=== PATIENT | female | born 1970 | race Caucasian/White ===

== ENCOUNTER 2016-08-11 19:00 | Emergency (ER) | payer OTHER ==
[~2016-08-11] VITALS: Ht 167.6 cm; Wt 55.3 kg
[~2016-08-11 19:00] MED LIST: AMOXICILLIN500 M1 PO; CELEXA20 MG PO; COLACE100 MG PO; DIAZEPAM5 MG; FLEXERIL10 MG PO; LIBRIUM25 MG PO; MOBIC15 MG PO; MOTRIN600 MG PO; NOHOMEMEDS; PEN-VEE K,VEET500 MG PO; PERCOCET 5/31 TABLET PO; PERIDEX1 ML MM; ULTRAM50 MG PO; ZOFRAN ODT4 MG PO; ZOFRAN4 MG PO
[2016-08-11 19:50] LABS: HEMATOCRIT 42.7 % (36.0-46.0); MCH 34.5 PG (29.0-34.0); MCHC 35.6 G/DL (30.0-36.0); MCV 96.8 FL (83-99); MEAN PLAT.VOLUME 10.3 uM^3 (9.5-12.4); PLATELET COUNT 309 K/uL (156-360); RBC DIS.WIDTH-SD 44.7 % (39-53); RED BLOOD COUNT 4.41 M/uL (3.80-5.20); WHITE BLOOD COUNT 9.7 K/uL (4.1-10.2)
[2016-08-11 19:59] LABS: CHLORIDE 107 mEq/L (99-109); POTASSIUM 3.5 mEq/L (3.7-5.4); SODIUM 146 mEq/L (136-147)
[2016-08-11 20:01] LABS: GLUCOSE 79 mg/dL (70-99)
[2016-08-11 20:02] LABS: ANION GAP 17 MEQ/L (2-14)
[2016-08-11 20:04] LABS: SERUM ETHYL ALCOHOL 360 mg/dL
[2016-08-11 20:05] LABS: GFR ESTIMATE (CALCULATED) > 59 mL/min/; UREA NITROGEN (BUN) 6 mg/dL (9-23)
[2016-08-12] MEDS ORDERED: LIBRIUM25 MG PO (06:10)
[2016-08-12 06:30] VITALS: BP 136/97
== END 2016-08-12 06:37 | disposition home or self-care (01) ==
LOC: EME 19:00
PROVIDERS: Emergency Medicine
DX: F33.8 Other recurrent depressive disorders (principal); F10.129 Alcohol abuse with intoxication, unspecified; Y90.8 Blood alcohol level of 240 mg/100 ml or more; R45.851 Suicidal ideations; F17.200 Nicotine dependence, unspecified, uncomplicated
CPT/HCPCS: 80048; 85027; 90837; 99281; 99285; G0480

== ENCOUNTER 2016-10-17 20:04 | Emergency (ER) | payer OTHER ==
[~2016-10-17] VITALS: Ht 165.1 cm; Wt 46.2 kg
[2016-10-17] MEDS ORDERED: LIBRIUM25 MG PO (20:28)
[2016-10-17] MEDS ORDERED: ZOFRAN4 MG PO (20:28)
[2016-10-17 20:54] VITALS: BP 131/93
== END 2016-10-17 20:56 | disposition home or self-care (01) ==
LOC: EME 20:04
DX: F10.10 Alcohol abuse, uncomplicated (principal); F17.200 Nicotine dependence, unspecified, uncomplicated
CPT/HCPCS: 99281; 99283

== ENCOUNTER 2016-10-22 00:12 | Emergency (ER) | payer OTHER ==
[~2016-10-22] VITALS: Ht 165.1 cm; Wt 48.6 kg
[2016-10-22 03:30] VITALS: BP 138/89
== END 2016-10-22 03:50 ==
LOC: EME 00:12
DX: F10.129 Alcohol abuse with intoxication, unspecified (principal); S20.212A Contusion of left front wall of thorax, initial encounter; S20.211A Contusion of right front wall of thorax, initial encounter; S00.12XA Contusion of left eyelid and periocular area, initial encounter; S00.531A Contusion of lip, initial encounter; Y04.0XXA Assault by unarmed brawl or fight, initial encounter; Y07.03 Male partner, perpetrator of maltreatment and neglect
CPT/HCPCS: 70450; 70486; 71111; 99281; 99283

== ENCOUNTER 2016-10-26 01:07 | Emergency (ER) | payer OTHER ==
[~2016-10-26] VITALS: Ht 165.1 cm; Wt 46.9 kg
[2016-10-26 01:52] LABS: ADD MIUA? YES; BILIRUBIN NEGATIVE; BLOOD NEGATIVE; COLOR YELLOW ((YELLOW)); GLUCOSE (STRIP) NEGATIVE; KETONES NEGATIVE; LEUKOCYTES LARGE; NITRITE NEGATIVE; PROTEIN (STRIP) NEGATIVE; SPECIFIC GRAVITY 1.005 (1.000-1.030); UROBILINOGEN 0.2 MG/DL (0.2-1.0)
[2016-10-26 02:01] LABS: ADD MEDTOX COMMENT Y; AMPHETAMINE NEGATIVE (500 ng/mL); BARBITURATES NEGATIVE (200 ng/mL); BENZODIAZEPINES PRESUMPTIVE POSITIVE (150 ng/mL); COCAINE NEGATIVE (150 ng/mL); INTERNAL CONTROLS VALID? YES; METHADONE NEGATIVE (200 ng/mL); METHAMPHETAMINE NEGATIVE (500 ng/mL); OPIATES (MORPHINE) NEGATIVE (100 ng/mL); OXYCODONE NEGATIVE (100 ng/mL); PHENCYCLIDINE NEGATIVE (25 ng/mL); PROPOXYPHENE NEGATIVE (300 ng/mL); THC CANNABINOIDS PRESUMPTIVE POSITIVE (50 ng/mL); TRICYCLIC ANTIDEPRESSANTS NEGATIVE (300 ng/mL)
[2016-10-26 02:05] LABS: BACTERIA RARE /HPF; EPITHELIAL CELLS RARE /HPF; MUCUS NONE SEEN /LPF; RED BLOOD CELLS 0-5 /HPF (0-5); UCUL ADDED? NO
[2016-10-26 02:13] LABS: HEMATOCRIT 44.1 % (36.0-46.0); MCH 33.4 PG (29.0-34.0); MCHC 34.9 G/DL (30.0-36.0); MCV 95.7 FL (83-99); MEAN PLAT.VOLUME 10.5 uM^3 (9.5-12.4); PLATELET COUNT 245 K/uL (156-360); RBC DIS.WIDTH-CV 13.2 % (11.8-14.6); RBC DIS.WIDTH-SD 46.6 % (39-53); RED BLOOD COUNT 4.61 M/uL (3.80-5.20); WHITE BLOOD COUNT 7.2 K/uL (4.1-10.2)
[2016-10-26 02:23] LABS: CHLORIDE 108 mEq/L (99-109); POTASSIUM 3.6 mEq/L (3.7-5.4); SODIUM 145 mEq/L (136-147)
[2016-10-26 02:25] LABS: GLUCOSE 97 mg/dL (70-99)
[2016-10-26 02:26] LABS: ANION GAP 14 MEQ/L (2-14)
[2016-10-26 02:28] LABS: SERUM ETHYL ALCOHOL 346 mg/dL
[2016-10-26 02:29] LABS: GFR ESTIMATE (CALCULATED) > 59 mL/min/
[2016-10-26 02:30] LABS: UREA NITROGEN (BUN) 5 mg/dL (9-23)
[2016-10-26 02:37] LABS: QUANTITATIVE HCG < 4.0 MIU/ML
[2016-10-26 02:42] LABS: BENZODIAZEPINES, URINE SCREEN POSITIVE (200 ng/mL)
[2016-10-26 13:38] VITALS: BP 100/80
== END 2016-10-26 13:40 | disposition home or self-care (01) ==
LOC: EME 01:07
PROVIDERS: Emergency Medicine
DX: F10.129 Alcohol abuse with intoxication, unspecified (principal); S00.83XA Contusion of other part of head, initial encounter; R45.851 Suicidal ideations; F33.8 Other recurrent depressive disorders; W10.9XXA Fall (on) (from) unspecified stairs and steps, initial encounter; Y90.8 Blood alcohol level of 240 mg/100 ml or more; F17.200 Nicotine dependence, unspecified, uncomplicated
CPT/HCPCS: 70450; 70486; 80048; 81003; 84702; 84999; 85027; 90839; 99281; 99284; G0480

== ENCOUNTER 2017-05-03 08:52 | Day surgery (SDC) | payer OTHER ==
[~2017-05-03] VITALS: Ht 165.1 cm; Wt 53.6 kg
[~2017-05-03 08:52] MED LIST changes: +CELEXA10 MG PO; +NAPROSYN375 MG PO; +VIVITROL380 MG/3.4 IM
[2017-05-03 09:30] VITALS: BP 115/75
[2017-05-03 12:30] VITALS: BP 124/73
== END 2017-05-03 13:00 | disposition home or self-care (01) ==
LOC: SDC 08:52
PROC: 0UBC7ZX Excision of Cervix, Via Natural or Artificial Opening, Diagnostic (ICD-10-PCS; principal; 2017-05-03)
DX: D06.9 Carcinoma in situ of cervix, unspecified (principal); F17.210 Nicotine dependence, cigarettes, uncomplicated; R87.810 Cervical high risk human papillomavirus (HPV) DNA test positive
CPT/HCPCS: 88305; 88307; J1100; J1885; J2250; J2405; J3010

== ENCOUNTER 2017-07-03 18:07 | Emergency (ER) | payer OTHER ==
[~2017-07-03] VITALS: Ht 165.1 cm; Wt 52.7 kg
[2017-07-03 21:14] LABS: HEMATOCRIT 42.4 % (36.0-46.0); HEMOGLOBIN 14.9 G/DL (11.9-15.5); MCH 32.7 PG (29.0-34.0); MCHC 35.1 G/DL (30.0-36.0); MCV 93.2 FL (83-99); PLATELET COUNT 275 K/uL (156-360); RBC DIS.WIDTH-CV 12.7 % (11.8-14.6); RBC DIS.WIDTH-SD 43.7 % (39-53); RED BLOOD COUNT 4.55 M/uL (3.80-5.20); WHITE BLOOD COUNT 7.6 K/uL (4.1-10.2)
[2017-07-03 21:16] LABS: AMPHETAMINE NEGATIVE (500 ng/mL); BENZODIAZEPINES PRESUMPTIVE POSITIVE (150 ng/mL); COCAINE NEGATIVE (150 ng/mL); METHAMPHETAMINE NEGATIVE (500 ng/mL); OPIATES (MORPHINE) NEGATIVE (100 ng/mL); PHENCYCLIDINE NEGATIVE (25 ng/mL); THC CANNABINOIDS NEGATIVE (50 ng/mL)
[2017-07-03 21:17] LABS: BARBITURATES NEGATIVE (200 ng/mL); BUPRENORPHINE NEGATIVE (10 ng/mL); METHADONE NEGATIVE (200 ng/mL); OXYCODONE NEGATIVE (100 ng/mL); PROPOXYPHENE NEGATIVE (300 ng/mL); TRICYCLIC ANTIDEPRESSANTS NEGATIVE (300 ng/mL)
[2017-07-03 21:22] LABS: ALBUMIN 3.7 g/dL (3.2-4.8); CHLORIDE 108 mEq/L (99-109); POTASSIUM 3.3 mEq/L (3.7-5.4); SODIUM 146 mEq/L (136-147)
[2017-07-03 21:25] LABS: GLUCOSE 133 mg/dL (70-99)
[2017-07-03 21:26] LABS: TOTAL BILIRUBIN 0.2 mg/dL (0.0-1.0)
[2017-07-03 21:27] LABS: SERUM ETHYL ALCOHOL 365 mg/dL
[2017-07-03 21:28] LABS: ALKALINE PHOSPHATASE 82 IU/L (3-129); CREATININE 0.8 mg/dL (0.6-1.3); GFR ESTIMATE (CALCULATED) > 59 mL/min/
[2017-07-03 21:29] LABS: UREA NITROGEN (BUN) 6 mg/dL (9-23)
[2017-07-03 21:30] LABS: AST (GOT) 26 IU/L (2-34)
[2017-07-03 21:31] LABS: ALT (GPT) 11 IU/L (3-49)
[2017-07-03 21:52] LABS: BENZODIAZEPINES, URINE SCREEN POSITIVE (200 ng/mL)
[2017-07-04 08:31] VITALS: BP 106/77
== END 2017-07-04 08:33 | disposition home or self-care (01) ==
LOC: EME 18:07
PROVIDERS: Emergency Medicine
DX: F10.129 Alcohol abuse with intoxication, unspecified (principal); F32.9 Major depressive disorder, single episode, unspecified; F19.90 Other psychoactive substance use, unspecified, uncomplicated; F41.9 Anxiety disorder, unspecified; F17.200 Nicotine dependence, unspecified, uncomplicated; Y90.8 Blood alcohol level of 240 mg/100 ml or more; Z86.018 Personal history of other benign neoplasm; Z88.8 Allergy status to other drugs, medicaments and biological substances
CPT/HCPCS: 80053; 84999; 85027; 90839; 99281; 99285; G0480

== ENCOUNTER 2017-07-07 20:46 | Emergency (ER) | payer OTHER ==
[~2017-07-07] VITALS: Ht 165.1 cm; Wt 52.8 kg
[2017-07-07] MEDS ORDERED: ATIVAN2 MG PO (21:57)
[2017-07-07 23:20] VITALS: BP 122/80
== END 2017-07-07 23:20 | disposition home or self-care (01) ==
LOC: EME 20:46
DX: F10.129 Alcohol abuse with intoxication, unspecified (principal); F32.9 Major depressive disorder, single episode, unspecified; Z63.0 Problems in relationship with spouse or partner; F17.200 Nicotine dependence, unspecified, uncomplicated

== ENCOUNTER 2017-07-13 15:29 | Inpatient (IN) | payer OTHER ==
[~2017-07-13] VITALS: Ht 167.6 cm; Wt 55.4 kg
[~2017-07-13 15:29] MED LIST changes: +ATIVAN2 MG PO
[2017-07-13 16:33] LABS: HEMATOCRIT 44.6 % (36.0-46.0); HEMOGLOBIN 15.9 G/DL (11.9-15.5); MCH 33.2 PG (29.0-34.0); MCHC 35.7 G/DL (30.0-36.0); MCV 93.1 FL (83-99); PLATELET COUNT 231 K/uL (156-360); RBC DIS.WIDTH-CV 13.3 % (11.8-14.6); RBC DIS.WIDTH-SD 45.6 % (39-53); RED BLOOD COUNT 4.79 M/uL (3.80-5.20); WHITE BLOOD COUNT 7.7 K/uL (4.1-10.2)
[2017-07-13 16:49] LABS: SERUM ETHYL ALCOHOL 469 mg/dL
[2017-07-13 16:52] LABS: ACETAMINOPHEN (TYLENOL) < 10 mcg/mL (10-30); SALICYLATE < 5.0 MG/DL (15-30)
[2017-07-13 19:37] LABS: AMPHETAMINE NEGATIVE (500 ng/mL); BARBITURATES NEGATIVE (200 ng/mL); BENZODIAZEPINES PRESUMPTIVE POSITIVE (150 ng/mL); BUPRENORPHINE NEGATIVE (10 ng/mL); COCAINE NEGATIVE (150 ng/mL); METHADONE NEGATIVE (200 ng/mL); METHAMPHETAMINE NEGATIVE (500 ng/mL); OPIATES (MORPHINE) NEGATIVE (100 ng/mL); OXYCODONE NEGATIVE (100 ng/mL); PHENCYCLIDINE NEGATIVE (25 ng/mL); PROPOXYPHENE NEGATIVE (300 ng/mL); THC CANNABINOIDS NEGATIVE (50 ng/mL); TRICYCLIC ANTIDEPRESSANTS NEGATIVE (300 ng/mL)
[2017-07-13 20:16] LABS: BENZODIAZEPINES, URINE SCREEN POSITIVE (200 ng/mL)
[2017-07-14] MEDS ORDERED: ATIVAN2 MG PO (11:34)
[2017-07-14] MEDS ORDERED: ADVIL200 MG PO (11:35)
[2017-07-14] MEDS ORDERED: COLD-FLU RELIE295 ML PO (11:36)
[2017-07-14 13:10] VITALS: BP 114/76
[2017-07-14 13:40] VITALS: BP 114/76
[2017-07-14 16:08] VITALS: BP 115/68
[2017-07-15 08:02] VITALS: BP 110/78
[2017-07-15 13:12] LABS: HEMATOCRIT 42.4 % (36.0-46.0); HEMOGLOBIN 14.9 G/DL (11.9-15.5); MCH 33.9 PG (29.0-34.0); MCHC 35.1 G/DL (30.0-36.0); MCV 96.6 FL (83-99); PLATELET COUNT 211 K/uL (156-360); RBC DIS.WIDTH-CV 13.2 % (11.8-14.6); RBC DIS.WIDTH-SD 47.5 % (39-53); RED BLOOD COUNT 4.39 M/uL (3.80-5.20); WHITE BLOOD COUNT 7.2 K/uL (4.1-10.2)
[2017-07-15 13:42] LABS: CHLORIDE 102 MEQ/L (99-109); CREATININE 0.7 MG/DL (0.6-1.3); GFR ESTIMATE (CALCULATED) > 59 mL/min/; GLUCOSE 90 mg/dL (70-99); POTASSIUM 4.3 MEQ/L (3.7-5.4); SODIUM 140 MEQ/L (136-147); UREA NITROGEN (BUN) 12 mg/dL (9-23)
[2017-07-15 16:51] VITALS: BP 113/76
[2017-07-16 07:51] VITALS: BP 119/79
[2017-07-16] MEDS ORDERED: SERTRALINE HCL50 MG PO (10:56)
== END 2017-07-16 12:50 | disposition home or self-care (01) | DRG 882 ==
LOC: EME 15:29 → EDOF 07-14 10:34 → 1WEST 07-14 10:34 → ENRESERV 07-14 12:10 → 1WEST 07-14 12:20
PROVIDERS: Emergency Medicine; Psychiatry & Neurology Psychiatry
DX: F43.22 Adjustment disorder with anxiety (principal); R45.851 Suicidal ideations; F10.121 Alcohol abuse with intoxication delirium; F10.14 Alcohol abuse with alcohol-induced mood disorder; Y90.8 Blood alcohol level of 240 mg/100 ml or more; F13.10 Sedative, hypnotic or anxiolytic abuse, uncomplicated; F12.90 Cannabis use, unspecified, uncomplicated; F32.9 Major depressive disorder, single episode, unspecified; F41.9 Anxiety disorder, unspecified; F17.200 Nicotine dependence, unspecified, uncomplicated; Z59.0 Homelessness; Z81.8 Family history of other mental and behavioral disorders
CPT/HCPCS: 80048; 84999; 85027; 90837; 93005; 99281; 99285; G0480; Q0169

== ENCOUNTER 2017-10-07 22:53 | Emergency (ER) | payer OTHER ==
[~2017-10-07] VITALS: Ht 170.2 cm; Wt 68.0 kg
[~2017-10-07 22:53] MED LIST changes: +ADVIL200 MG PO; +COLD-FLU RELIE295 ML PO; +SERTRALINE HCL50 MG PO
[2017-10-07 23:26] LABS: HEMATOCRIT 43.8 % (36.0-46.0); MCH 34.6 PG (29.0-34.0); MCHC 36.5 G/DL (30.0-36.0); MCV 94.8 FL (83-99); PLATELET COUNT 273 K/uL (156-360); RBC DIS.WIDTH-SD 45.2 % (39-53); RED BLOOD COUNT 4.62 M/uL (3.80-5.20); WHITE BLOOD COUNT 7.9 K/uL (4.1-10.2)
[2017-10-07 23:37] LABS: CHLORIDE 106 mEq/L (99-109); POTASSIUM 3.4 mEq/L (3.7-5.4); SODIUM 146 mEq/L (136-147)
[2017-10-07 23:38] LABS: GLUCOSE 110 mg/dL (70-99)
[2017-10-07 23:41] LABS: SERUM ETHYL ALCOHOL 406 mg/dL
[2017-10-07 23:42] LABS: CREATININE 0.7 mg/dL (0.6-1.3); GFR ESTIMATE (CALCULATED) > 59 mL/min/
[2017-10-07 23:43] LABS: UREA NITROGEN (BUN) 7 mg/dL (9-23)
[2017-10-08 00:03] LABS: ALBUMIN 4.4 g/dL (3.2-4.8)
[2017-10-08 00:06] LABS: TOTAL PROTEIN 7.7 g/dL (6.4-8.3)
[2017-10-08 00:08] LABS: TOTAL BILIRUBIN 0.4 mg/dL (0.0-1.0)
[2017-10-08 00:09] LABS: ALKALINE PHOSPHATASE 74 IU/L (3-129)
[2017-10-08 00:11] LABS: AST (GOT) 43 IU/L (2-34); DIRECT BILIRUBIN 0.3 mg/dL (0.0-0.3)
[2017-10-08 00:12] LABS: ALT (GPT) 16 IU/L (3-49); LIPASE 132 U/L (1.0-51.0)
[2017-10-08 02:02] LABS: APPEARANCE CLEAR ((CLEAR)); BILIRUBIN NEGATIVE; BLOOD NEGATIVE; COLOR YELLOW ((YELLOW)); GLUCOSE (STRIP) NEGATIVE; KETONES NEGATIVE; LEUKOCYTES SMALL; NITRITE POSITIVE; PROTEIN (STRIP) NEGATIVE; SPECIFIC GRAVITY 1.049 (1.000-1.030)
[2017-10-08 02:06] LABS: BACTERIA NONE SEEN /HPF; EPITHELIAL CELLS RARE /HPF; MUCUS NONE SEEN /LPF; RED BLOOD CELLS 0-5 /HPF (0-5); UCUL ADDED? NO; WHITE BLOOD CELLS 0-5 /HPF (0-5)
[2017-10-08 02:11] LABS: AMPHETAMINE NEGATIVE (500 ng/mL); BARBITURATES NEGATIVE (200 ng/mL); BENZODIAZEPINES NEGATIVE (150 ng/mL); BUPRENORPHINE NEGATIVE (10 ng/mL); COCAINE NEGATIVE (150 ng/mL); METHADONE NEGATIVE (200 ng/mL); METHAMPHETAMINE NEGATIVE (500 ng/mL); OPIATES (MORPHINE) NEGATIVE (100 ng/mL); OXYCODONE NEGATIVE (100 ng/mL); PHENCYCLIDINE NEGATIVE (25 ng/mL); PROPOXYPHENE NEGATIVE (300 ng/mL); THC CANNABINOIDS PRESUMPTIVE POSITIVE (50 ng/mL); TRICYCLIC ANTIDEPRESSANTS NEGATIVE (300 ng/mL)
[2017-10-08] MEDS ORDERED: B-1100 MG PO ×2 (03:43→06:15)
[2017-10-08] MEDS ORDERED: LIBRIUM25 MG PO ×2 (03:43→06:15)
[2017-10-08] MEDS ORDERED: KEFLEX500 MG PO ×3 (03:43→06:15)
[2017-10-08 07:50] VITALS: BP 92/62
== END 2017-10-08 08:01 | disposition home or self-care (01) ==
LOC: EME 22:53
DX: F10.129 Alcohol abuse with intoxication, unspecified (principal); Y90.8 Blood alcohol level of 240 mg/100 ml or more; F32.9 Major depressive disorder, single episode, unspecified; F19.10 Other psychoactive substance abuse, uncomplicated; K29.80 Duodenitis without bleeding; K85.90 Acute pancreatitis without necrosis or infection, unspecified; N39.0 Urinary tract infection, site not specified; F17.200 Nicotine dependence, unspecified, uncomplicated; Z88.8 Allergy status to other drugs, medicaments and biological substances
CPT/HCPCS: 74177; 80048; 80076; 81003; 83690; 84999; 85027; 99281; 99284; G0480; J2405; J7030